=== PATIENT | female | born 1935 | race Caucasian/White ===

== ENCOUNTER 2024-03-28 16:46 | Observation (INO) | payer MEDICARE, SELFPAY ==
[2024-03-28] VITALS (19 sets, daily range): BP systolic 113–139; BP diastolic 51–73; PULSE 70–94; RESP 14–26; TEMP 36.4; O2SAT 90–96
--- NOTE | ~2024-03-28 | XR_ITS ---
XR chest 1V portable DATE: 03/28/2024 18:21 INDICATION: Syncope TECHNIQUE: Portable upright AP chest on 03/28/2024 at 1814 hours COMPARISON: None FINDINGS: Heart size appears within normal limits considering magnification associated with AP projec tion. There is aortic arch and descending thoracic aortic calcification. No hilar or mediastinal enlargement. There is moderate elevation right hemidiaphragm. No pulmonary infiltrate or consolidation, pleural effusion or pulmonary vascular congestion or pneumo thorax is detected. There is prominent thoracolumbar dextroscoliosis. Severe bilateral glenohumeral osteophytosis of bilateral chronic rotator cuff atrophy. IMPRESSION: No active cardiopulmonary disease Moderate elevation right diaphragm Aortic atherosclerosis No active pulmonary disease Reviewed, dictated and finalized at location A. ICAL THERAPIST CLINIC DIRECTOR
--- NOTE | ~2024-03-28 | CT_ITS ---
EXAMINATION: CT cervical spine wo con DATE: 03/28/2024 19:54 INDICATION: Fall. TECHNIQUE: Computed tomography (CT) of the cervical spine was performed without intravenous contrast. Automated exposure control and iterative reconstruction technique were employed. Exam dose: 681.00 mGy-cm total exam DLP. COMPARISON: None FINDINGS: There is straightening of cervical spine which may be due to muscle spasm. Normal alignment at the atlantoaxial joints. C1 and C2 are normally aligned and the odontoid process is intact. There is minimal anterolisthesis at C2-3. There is an osteosclerotic lesion of the left posterosuperior aspect of the C3 vertebral body, possib ly a bone island. 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 There is slight anterolisthesis and severe degenerative disc disease at C4-5. There is severe degenerative disc disease at C5-6 and C6-7. There is slight anterolisthesis at C7-T1. There is prominent degenerative change at the facet joints throughout the cervical spine. There is pr ominent degenerative change at the uncovertebral joints 4 5, C5-6 and C6-7, particularly on the left side. No fracture or dislocation or locked facet or prevertebral soft tissue swelling is detected. IMPRESSION: Severe cervical spondylosis straightening of the cervical spine which may be due to musc le spasm. No fracture or dislocation or locked facet Reviewed, dictated and finalized at [facility]. Reviewed, dictated and finalized at location A. MENDER IMPRESSION: Severe cervical spondylosis straightening of the cervical spine wh ich may be due to muscle spasm. No fracture or dislocation or locked facet
--- NOTE | ~2024-03-28 | CT_ITS ---
EXAMINATION: CT brain wo con DATE: 03/28/2024 19:53 INDICATION: Seizure versus syncope TECHNIQUE: Computed tomography (CT) of the head was performed without intravenous contrast. The mA wa s adjusted according to patient size. Iterative reconstruction technique was employed. Exam dose: 68 1.00 mGy-cm total exam DLP. COMPARISON: None FINDINGS: There are prominent bilateral vertebral artery calcifications as well as prominent bilatera l carotid siphon internal carotid artery calcifications. There is nonspecific diminished attenuation the cerebral white matter, likely due to chronic ischemic small vessel ischemic changes. No intracranial mass lesion or hemorrhage or cerebrovascular accident, midline shift or mass effect i s detected. No subdural or epidural hematoma. Status post bilateral cataract repair The mastoid air cells and paranasal sinuses are well-developed and aerated. No fracture or bone destruction of the cranial vault is detected. IMPRESSION: Cerebral atherosclerosis and chronic small vessel ischemic changes of the cerebral white matter No acute intracranial finding Reviewed, dictated and finalized at [facility]. Reviewed, dictated and finalized at location A. D ARTILLERY OPERATIONS SPECIALIST
--- NOTE | 2024-03-28 16:50 | ECG_ITS ---
Test Date: 2024-03-28 16:55:59 Measurements Intervals [place] Rate: 78 P: 50 MS: 179 QRS: -32 QRSD: 83 T: 15 QT: 365 QTc: 417 Interpretive Statements SINUS RHYTHM LEFT AXIS DEVIATION [QRS AXIS < -30] PATTERN CONSISTENT WITH PULMONARY DISEASE VOLTAGE CRITERIA FOR LVH [MEETS CRITERIA IN ONE OF: R(aVL), S(V1), R(V5), R(V5/V6)+S(V1)] No previous ECG available for comparison Electronically Signed On 03-29-2024 12:43:50 LEARNING SUPPORT SERVICES DIRECTOR by Aakash Taveras M.D.
[2024-03-28 18:01] LABS: Basophils Percent Auto 0.5 % (0.2-1.2); Eosinophils Percent Auto 0.5 % (0-4.4); Hematocrit 39.6 % (37.0-47.0); Immature Granulocyte Absolute 0.05 K/mm3 (0.00-0.031); Immature Granulocyte Percent A 0.6 % (0-0.5); Lymphocytes Absolute Auto 1.13 K/mm3 (0.9-3.2); Lymphocytes Percent Auto 14.2 % (18.3-44.2); Mean Corpuscular HGB Conc 32.8 g/dl (32-36); Mean Corpuscular Hemoglobin 30.7 pg (26-34); Mean Corpuscular Volume 93.4 fl (80-100); Mean Platelet Volume 9.4 fl (7.4-10.4); Monocytes Absolute Auto 0.7 K/mm3 (0.1-0.6); Monocytes Percent Auto 8.3 % (2.6-8.5); Neutrophils Percent Auto 75.9 % (45.5-73.1); Platelet Count Result 254 k/mm3 (150-375); Red Blood Count 4.24 M/mm3 (4.2-5.4); Red Cell Distribution Width 12.4 % (11.5-14.5)
[2024-03-28 18:14] LABS: Alanine Aminotransferase 17 U/L (6-35); Albumin Level 4.2 g/dL (3.5-5.1); Alkaline Phosphatase 67 U/L (38-126); Anion Gap 7 mmol/L (4-12); Aspartate Amino Transferase 26 U/L (14-36); Bilirubin,Total 0.3 mg/dL (0.2-1.3); Blood Urea Nitrogen 21 mg/dL (7-17); Calcium 9.2 mg/dL (8.4-10.2); Carbon Dioxide 31 mmol/L (22-30); Chloride 99 mmol/L (98-107); Estimated Glomerular Filt Rate 59; Glucose 128 mg/dL (65-110); Potassium 4.1 mmol/L (3.4-5.0); Sodium 137 mmol/L (137-145)
--- NOTE | 2024-03-28 19:53 | PC.NURSE ---
Report received from TALIA Grullon. Assumed care of patient at this time.
[2024-03-28] MEDS: levETIRAcetam 1500MG/NACL100ML 1,500 MG/100 ML BAG 400 MG IVPB (19:57)
[2024-03-28 20:13] LABS: Prothrombin Time 13.7 Seconds (11.1-14.7)
[2024-03-28] MEDS: SODIUM CHLORIDE 0.9% IV 1,000 ML 999 ML IV CONT (20:13)
[2024-03-28 20:14] LABS: Partial Thromboplastin Time 28.7 Seconds (22.3-36.8)
[2024-03-28 21:20] LABS: Lactic Acid Reflex 1.1 mmol/L (0.7-2.0); Lipase 64 U/L (23-300); Magnesium 2.1 mg/dL (1.6-2.3); Phosphorus 4.2 mg/dL (2.5-4.5)
[2024-03-28 21:21] LABS: Ethanol < 10 mg/dL (<10)
[2024-03-28 21:33] LABS: NT Pro B Type Natriuretic Pept 136 pg/mL (19.9-100); Troponin I < 0.012 ng/mL (0.000-0.034)
[2024-03-28 21:35] LABS: Fractional Inspired Oxygen 21 %; HCO3 VBG 25.6 mEq/l (24.0-30.0); PCO2 VBG 43.7 mmHg (42.0-48.0); pH VBG 7.386 (7.300-7.400)
[2024-03-28 21:48] LABS: Influenza A QL RT-PCR Negative (Negative); Influenza B QL RT-PCR Negative (Negative); RSV RNA, RT-PCR Negative (Negative); SARS-CoV-2 RNA PCR Negative (Negative)
[2024-03-28 22:35] LABS: Add Urine Microscopic? YES; Appearance Urine Clear (Clear); Bacteria Urine None Seen /hpf; Bilirubin Urine Negative (Negative); Blood Urine Negative (Negative); Color Urine Yellow (Yellow); Glucose Urine UA Negative (Negative); Ketones Urine Negative (Negative); Leukocyte Esterase Ur 2+ LEU/UL (Negative); Nitrate Urine Negative (Negative); Non Pathogenic Casts 0-2; Protein Urine Negative (Negative); RBC Urine 0-2 /hpf (0-2); Specific Grav Ur 1.011 (1.001-1.035); Squamous Epithelial Cell Urine None Seen /hpf (Few); Urobilinogen Urine 0.2 mg/dL (<2.0)
[2024-03-28 22:51] LABS: Amphetamine Screen Urine Negative (Negative); Barbiturate Screen Urine Negative (Negative); Benzodiazepines Screen Urine Negative (Negative); Cannabinoid Screen Urine Negative (Negative); Cocaine Screen Urine Negative (Negative); Methadone Screen Urine Negative (Negative); Opiate Screen Urine Negative (Negative); Phencyclidine Screen Urine Negative (Negative)
--- NOTE | 2024-03-28 23:21 | ED.GENADULT ---
HPI - General Adult General Chief complaint: Seizure Stated complaint: syncope vs seizure Time Seen by Provider: 03/28/24 18:54 History of Present Illness HPI narrative: This is an 88-year-old female presenting to the ED after loss of consciousness. Over the last week patient has felt slightly under the weather. She has had intermittent fevers. She has had decreased oral intake and felt lightheaded and dizzy when she stands up. She has had sinus congestion and pressure. She denies chest pain difficulty or abdominal pain or urinary symptoms. She was seen at an outside hospital yesterday with a negative workup was discharged with diagnosis of viral illness. She had been doing better today, however a family birthday libertarian while she was sitting down eating she lost consciousness. Her eyes rolled head and she became very pale. Her granddaughter kept her from falling or hitting her head. Family noticed slight tremors during this time. Episode lasted approximately 5 minutes before she returned to consciousness. An ambulance was called and she had 1 episode of nausea and vomiting in the ambulance. At this time she is resting comfortably in bed with no complaints. Patient has no history of seizures. No tongue biting or urinary incontinence. Related Data Allergies Allergy/AdvReac Type Severity Reaction Status Date / Time Penicillins Allergy Unknown Verified 03/28/24 19:56 Exam Narrative: APPEARANCE: No apparent distress. Head: atraumatic. EYES: EOMI, NOSE: Atraumatic NECK: Trachea midline RESPIRATORY: No increased rate of breathing clear to auscultation CARDIOVASCULAR: RRR, no peripheral edema ABDOMINAL: Non-distended soft nontender MUSCULOSKELETAl: No obvious deformities NEURO: Alert. Cranial nerves 2-12 grossly intact. Sensation light touch, motor function cerebellar function intact for 4 extremities. Gait exam was normal. SKIN:: Warm, dry. Normal color PSYCHIATRIC: Normal affect Course Vital Signs Vital signs: Vital Signs Temperature 97.6 F 03/28/24 16:46 Pulse Rate 79 03/28/24 16:46 Respiratory Rate 16 03/28/24 16:46 Blood Pressure 135/70 03/28/24 16:46 Pulse Oximetry 96 03/28/24 16:46 Oxygen Delivery Room Air 03/28/24 16:46 Temperature 97.6 F 03/28/24 16:46 Pulse Rate 81 03/28/24 22:31 Respiratory Rate 14 03/28/24 22:31 Blood Pressure 139/57 L 03/28/24 22:31 Pulse Oximetry 92 03/28/24 19:01 Oxygen Delivery Room Air 03/28/24 16:58 Medical Decision Making MDM Narrative Medical decision making narrative: -Course: 88-year-old female presenting with brief loss of consciousness in the setting of suspected viral illness. Based on her history and physical I suspect this was a syncopal event as opposed to seizure. However given her advanced age and her multiple visits to the emergency room a broad workup will be obtained. Patient given a dose of Keppra and 1 L of normal saline. CT head and C-spine unremarkable. Chest x-ray negative. Laboratory studies unremarkable. Viral swabs negative Urine with 6-10 white blood cells. Patient started on ceftriaxone. Independent EKG interpretation: Rhythm [sinus], Rate [78], [place] -[normal], [place] -[normal], QRS [narrow], QTC [normal], T waves -[negative for concerning inversions], ST Segments - [Negative for concerning elevations] Final interpretations: [Normal Sinus Rhythm] Patient will be admitted hospital for further workup of her loss of consciousness. Consult placed to Neurology -DDX includes but is not limited to: Viral syndrome, dehydration, syncope, seizure -Social determinants of health: Patient is very active exercises multiple times per week. Fully functional at her own. Denies use of drugs or alcohol -Hx from independent Sources: Son and granddaughter at bedside -Discussion of Management/Consultants:Josiah, -Interventions: Keppra 1500 mg, normal saline, ceftriaxone -Shared decision making / Disposition: Observation Vital Signs Vital Signs: Vital Signs Temperature 97.6 F 03/28/24 16:46 Pulse Rate 79 03/28/24 16:46 Respiratory Rate 16 03/28/24 16:46 Blood Pressure 135/70 03/28/24 16:46 Pulse Oximetry 96 03/28/24 16:46 Oxygen Delivery Room Air 03/28/24 16:46 Temperature 97.6 F 03/28/24 16:46 Pulse Rate 81 03/28/24 22:31 Respiratory Rate 14 03/28/24 22:31 Blood Pressure 139/57 L 03/28/24 22:31 Pulse Oximetry 92 03/28/24 19:01 Oxygen Delivery Room Air 03/28/24 16:58 Lab Data 03/28/24 17:53 03/28/24 17:53 Labs: Lab Results 03/28/24 03/28/24 03/28/24 Range/Units 17:53 21:03 22:27 WBC 8.0 (4.5-10.0) K/mm3 RBC 4.24 (4.2-5.4) M/mm3 Hgb 13.0 (12.0-15.0) g/dL Hct 39.6 (37.0-47.0) % MCV 93.4 (80-100) fl MCH 30.7 (26-34) pg MCHC 32.8 (32-36) g/dl RDW 12.4 (11.5-14.5) % Plt Count 254 (150-375) k/mm3 MPV 9.4 (7.4-10.4) fl Immature Gran % (Auto) 0.6 H (0-0.5) % Neut % (Auto) 75.9 H (45.5-73.1) % Lymph % (Auto) 14.2 L (18.3-44.2) % [place] % (Auto) 8.3 (2.6-8.5) % Eos % (Auto) 0.5 (0-4.4) % Baso % (Auto) 0.5 (0.2-1.2) % Lymph # (Auto) 1.13 (0.9-3.2) K/mm3 [place] # (Auto) 0.7 H (0.1-0.6) K/mm3 Eos # (Auto) 0.0 (0-0.3) K/mm3 Baso # (Auto) 0.0 (0.0-0.1) K/mm3 Abs Immat Gran (auto) 0.05 H (0.00-0.031) K/mm3 Absolute Neuts (auto) 6.0 (1.3-6.7) K/mm3 Absolute Nucleated RBC 0.000 (0.0-0.012) K/mm3 Nucleated RBC % 0.0 (0.0-0.2) % PT 13.7 (11.1-14.7) Seconds INR 1.0 APTT 28.7 (22.3-36.8) Seconds Sodium 137 (137-145) mmol/L Potassium 4.1 (3.4-5.0) mmol/L Chloride 99 (98-107) mmol/L Carbon Dioxide 31 H (22-30) mmol/L Anion Gap 7 (4-12) mmol/L BUN 21 H (7-17) mg/dL Creatinine 0.90 (0.7-1.0) mg/dL Estim Creat Clear Calc Not Reportable Estimated GFR 59 (59 - ) Glucose 128 H (65-110) mg/dL Lactic Acid 1.1 (0.7-2.0) mmol/L Calcium 9.2 (8.4-10.2) mg/dL Phosphorus 4.2 (2.5-4.5) mg/dL Magnesium 2.1 (1.6-2.3) mg/dL Total Bilirubin 0.3 (0.2-1.3) mg/dL AST 26 (14-36) U/L ALT 17 (6-35) U/L Alkaline Phosphatase 67 (38-126) U/L Troponin I < 0.012 (0.000-0.034) ng/mL NT-Pro-B Natriuret Pep 136 H (19.9-100) pg/mL Total Protein 8.0 (6.3-8.2) g/dL Albumin 4.2 (3.5-5.1) g/dL Lipase 64 (23-300) U/L TSH (Reflex) 2.200 (0.465-4.68) uIU/mL Urine Color Yellow (Yellow) Urine Appearance Clear (Clear) Urine pH 7.0 (5.0-9.0) Ur Specific [place] 1.011 (1.001-1.035) Urine Protein Negative (Negative) mg/dL Urine Glucose (UA) Negative (Negative) mg/dL Urine Ketones Negative (Negative) mg/dL Ur Blood (Man) Negative (Negative) Urine Nitrate Negative (Negative) Urine Bilirubin Negative (Negative) Urine Urobilinogen 0.2 (<2.0) mg/dL Leukocyte Esterase Rfl 2+ H (Negative) VINCE/UL Urine RBC 0-2 (0-2) /hpf Urine WBC 6-10 H (0-3) /hpf Ur Squamous Epith Cells None seen (Few) /hpf Urine Bacteria None seen /hpf Urine Casts 0-2 Urine Opiates Screen Negative (Negative) Urine Methadone Screen Negative (Negative) Ur Barbiturates Screen Negative (Negative) Ur Phencyclidine Scrn Negative (Negative) Ur Amphetamine Screen Negative (Negative) U Benzodiazepines Scrn Negative (Negative) Urine Cocaine Screen Negative (Negative) U Cannabinoids Screen Negative (Negative) Ethyl Alcohol < 10 (<10) mg/dL Influenza A (RT-PCR) Negative (Negative) Influenza B (RT-PCR) Negative (Negative) RSV (RT-PCR) Negative (Negative) SARS-CoV-2 RNA (RT-PCR) Negative (Negative) ABG Data ABG results: 03/28/24 21:03 VBG pH 7.386 VBG pCO2 43.7 VBG pO2 60.0 H VBG HCO3 25.6 O2 Delivery Device Not Reportable O2 Liters/Min Not Reportable FiO2 21 Discharge Plan Discharge Clinical Impression: Brief loss of consciousness, Acute dehydration, Acute UTI Patient Disposition: Home, Self-Care Condition: Guarded Prognosis Instructions: Antibiotic Form Follow-up/Referrals: Micah,Les Borjas MD [Primary Care Provider] -
[2024-03-29] VITALS (29 sets, daily range): BP systolic 116–179; BP diastolic 48–68; PULSE 57–89; RESP 13–18; TEMP 36.1–36.6; O2SAT 92–99; BMI 18.3
--- NOTE | 2024-03-29 00:12 | ECG_ITS ---
Test Date: 2024-03-29 00:55:04 Measurements Intervals [place] Rate: 74 P: 67 [place]: 185 QRS: -24 QRSD: 86 T: 19 QT: 374 QTc: 417 Interpretive Statements SINUS RHYTHM BORDERLINE LEFT AXIS DEVIATION [QRS AXIS < -20] Compared to ECG 03/28/2024 16:55:59 Left ventricular hypertrophy no longer present Electronically Signed On 03-29-2024 12:51:47 CLIENT DELIVERY SPECIALIST by Aakash Taveras M.D.
[2024-03-29 01:35] LABS: Troponin I < 0.012 ng/mL (0.000-0.034)
--- NOTE | 2024-03-29 07:39 | P.HP_ITS ---
H&P: HPI History of Present Illness Date/Time: 03/29/24 07:39 Chief Complaint: Loss of consciousness Narrative: 88 y/o female, recently treated for dizziness, admitted after a loss of consciousness. The patient is generally very active, still goes to the gym several times a week. She had a fall 2 months ago. Sounds like she tripped, but may have had dizziness before the episode. Fell down several steps and had bruising to her face and a laceration. Last month no significant complaints and was going to the gym. Notes sinus congestion and heartburn sometimes. Last week, March 23 & she had a low grade fever, also notes some intermittent dysuria recently. Fevers resolved but she had positional dizziness on Friday and went to the ER in [facility]. Symptoms thought to be vertigo so she was started on meclizine. She continues to have positional dizziness intermittently. Yesterday she was at her grandson's birthday constitution party and was standing and talking, suddenly lost consciousness mid sentence and had to be caught. Was not injured because a family member caught her. Her son reports no shaking during the episode and sounds like her pulse was palpable and blood pressure was normal. There was a note in the ER that she may have had slight tremors but son at bedside did not notice any. Son who was present said the episode lasted about 5 minutes. She was completely unresponsive and when she woke up 5 minutes later, she made a comment related to the conversation she was having when she lost consciousness. Her son reports her speech was not quite normal initially but 15 minutes later he felt her mental status was back to baseline. She had nausea in the ambulance. Home meds: Meclizine, Omeprazole PRN, otherwise none Review of Systems Review of Systems: Nausea/vomiting, dizziness, recent fevers PMFSH Family History Family History (Updated 03/29/24 @ 02:04 by Kirti Arriaza RN) Father Cerebrovascular accident Social History Social History Smoking status: Former smoker Substance use type: does not use Do You Feel Safe in your Home?: Yes Lack of Transportation: No Lack of Food: Never True Current Housing: I Have Housing Concerned About Future Housing: No Difficulty Paying Gas/Electric Bills: No Difficulty Paying for Meds: No Currently Unemployed: No Education: Bachelor's Degree Difficulty w/ Childcare or Family Care: No Spiritual care concerns: No Meds Home Medications and Allergies Home Medications Medication Instructions Recorded Confirmed Type aspirin 81 mg tablet 81 mg PO DAILY 03/29/24 03/29/24 History omeprazole magnesium 20 mg 20 mg PO DAILY 03/29/24 03/29/24 History tablet,delayed release (Prilosec OTC) Allergies Allergy/AdvReac Type Severity Reaction Status Date / Time Penicillins Allergy Unknown Verified 03/28/24 19:56 Vital Signs Vital Signs - 24 hr 03/28/24 16:46 03/28/24 16:58 03/28/24 19:00 Temperature 97.6 F Pulse Rate 79 80 Respiratory Rate 16 14 Blood Pressure 135/70 Pulse Oximetry 96 90 Oxygen Delivery Room Air Room Air 03/28/24 19:01 03/28/24 20:06 03/28/24 20:40 Temperature Pulse Rate 85 94 89 Respiratory Rate 19 17 17 Blood Pressure 133/73 Pulse Oximetry 92 Oxygen Delivery 03/28/24 20:45 03/28/24 21:05 03/28/24 21:15 Temperature Pulse Rate 85 91 81 Respiratory Rate 14 20 16 Blood Pressure Pulse Oximetry Oxygen Delivery 03/28/24 21:31 03/28/24 22:25 03/28/24 22:30 Temperature Pulse Rate 80 Respiratory Rate 26 H 19 Blood Pressure 139/53 L Pulse Oximetry Oxygen Delivery 03/28/24 22:31 03/28/24 22:32 03/28/24 23:01 Temperature Pulse Rate 81 82 75 Respiratory Rate 14 16 20 Blood Pressure 139/57 L 113/51 L Pulse Oximetry Oxygen Delivery 03/28/24 23:02 03/28/24 23:24 03/28/24 23:30 Temperature Pulse Rate 73 71 86 Respiratory Rate 16 14 21 H Blood Pressure Pulse Oximetry Oxygen Delivery 03/28/24 23:31 03/28/24 23:45 03/29/24 00:00 Temperature Pulse Rate 70 71 71 Respiratory Rate 22 H 16 15 Blood Pressure 132/56 L Pulse Oximetry 98 Oxygen Delivery 03/29/24 00:01 03/29/24 00:02 03/29/24 00:29 Temperature Pulse Rate 74 68 71 Respiratory Rate 16 15 14 Blood Pressure 139/53 L Pulse Oximetry 95 97 97 Oxygen Delivery 03/29/24 00:30 03/29/24 00:31 03/29/24 00:45 Temperature Pulse Rate 70 77 66 Respiratory Rate 16 15 14 Blood Pressure 126/58 L Pulse Oximetry 93 94 92 Oxygen Delivery 03/29/24 01:15 03/29/24 01:30 03/29/24 01:31 Temperature Pulse Rate 72 67 76 Respiratory Rate 14 15 17 Blood Pressure 130/67 Pulse Oximetry 96 Oxygen Delivery 03/29/24 01:32 03/29/24 03:20 03/29/24 03:30 Temperature Pulse Rate 67 61 61 Respiratory Rate 15 15 14 Blood Pressure Pulse Oximetry Oxygen Delivery 03/29/24 03:31 03/29/24 04:03 03/29/24 04:15 Temperature Pulse Rate 62 60 63 Respiratory Rate 14 13 16 Blood Pressure 116/50 L Pulse Oximetry Oxygen Delivery 03/29/24 04:30 03/29/24 04:31 03/29/24 04:45 Temperature Pulse Rate 57 L 58 L 59 L Respiratory Rate 15 13 15 Blood Pressure 143/48 H Pulse Oximetry Oxygen Delivery 03/29/24 05:07 03/29/24 07:11 03/29/24 07:11 Temperature 97.6 F Pulse Rate 60 71 71 Respiratory Rate 15 18 Blood Pressure 172/59 H Pulse Oximetry 97 96 Oxygen Delivery Exam Narrative: General - Awake and alert. No acute distress Eyes - PERRLA, EOM intact ENT - No thrush, No erythema Neck - No noticeable or palpable swelling Lymph Nodes - No lymphadenopathy Cardiovascular - RRR no m/r/g, no JVD Lungs: Clear to auscultation, No wheezing, use of accessory muscles, no crackles Skin - Skin warm and dry, no wounds or rashes Abdomen - Normal bowel sounds, abdomen soft and nontender Extremities - No edema, cyanosis or clubbing Musculoskeletal - 5/5 strength, normal range of motion, no swollen or erythematous joints. Neurological ? Alert and oriented x 3, CN 2-12 grossly intact. Gait slightly unsteady. Nonfocal exam. Psych: Normal mood and affect H&P: Results Labs Labs: Short CBC 03/28/24 Range/Units 17:53 WBC 8.0 (4.5-10.0) K/mm3 Hgb 13.0 (12.0-15.0) g/dL Hct 39.6 (37.0-47.0) % Plt Count 254 (150-375) k/mm3 [facility] 03/28/24 17:53 Sodium 137 Potassium 4.1 Chloride 99 Carbon Dioxide 31 H BUN 21 H Creatinine 0.90 Glucose 128 H Calcium 9.2 Cardiac Enzymes 03/28/24 03/29/24 Range/Units 21:03 01:02 Troponin I < 0.012 < 0.012 (0.000-0.034) ng/mL Liver Function 03/28/24 Range/Units 17:53 Total Bilirubin 0.3 (0.2-1.3) mg/dL AST 26 (14-36) U/L ALT 17 (6-35) U/L Alkaline Phosphatase 67 (38-126) U/L Albumin 4.2 (3.5-5.1) g/dL Urine 03/28/24 Range/Units 22:27 Urine Color Yellow (Yellow) Urine Appearance Clear (Clear) Urine pH 7.0 (5.0-9.0) Ur Specific [place] 1.011 (1.001-1.035) Urine Protein Negative (Negative) mg/dL Urine Glucose (UA) Negative (Negative) mg/dL Assessment and Plan Assessment and plan (1) Loss of consciousness: Code(s): R40.20 - Unspecified coma Status: Acute Assessment and Plan: Fell 2 months ago. Continues to report dizziness intermittently. 03/28 she was at her grandson's birthday constitution party and was standing and talking, suddenly lost consciousness mid sentence and had to be caught. She was caught so no injuries. No obvious seizure like activity per patient's son. Episode lasted about 5 minutes. Per son, she was completely unresponsive and when she woke up 5 minutes later, she made a comment related to the conversation she was having when she lost consciousness. Her son reports her speech was not quite normal initially but 15 minutes later he felt her mental status was back to baseline. She did have an episode of nausea/vomiting in the ambulance. In the ED, Head CT and cervical spine CT no acute findings Ddx includes seizure, arrhythmia, infection triggering arrhythmia 03/[address]: Cerebral atherosclerosis and chronic small vessel ischemic changes of the cerebral white matter No acute intracranial findings EKG NSR, normal QTc, 417 03/[address] Severe cervical spondylosis straightening of the cervical spine which may be due to muscle spasm. No fracture or dislocation or locked facet --Family member is Chasidy, who is an RN here and was present for the event may have additional information if needed. --Neurology consult --TTE --Monitor on tele --EEG --Stop meclizine for now --Orthostatic VS --Fall precautions, seizure precautions --Patient is a full code. Clarified with patient and son --PT/OT (2) GERD (gastroesophageal reflux disease): Code(s): K21.9 - Gastro-esophageal reflux disease without esophagitis Status: Acute Assessment and Plan: Takes omeprazole at home sometimes. Hasn't taken in a couple of days and has had reflux symptoms --Continue PPI --Stool for h pylori, though can be false negative on a PPI (3) Dysuria: Code(s): R30.0 - Dysuria Status: Acute Assessment and Plan: Recent low grade temps. No back pain Reports dysuria recently --s/p 1 dose of ceftriaxone in the ED --TTE --Blood cultures pending Quality VTE Prophylaxis VTE prophylaxis: pharmacologic ordered Hospitalist MIPS Advance Care Plan I have confirmed that the patient's Advanced Care Plan is present, code status is documented, or surrogate decision maker is listed in patient medical record.: Yes Medication Reconciliation I have utilized all available resources to obtain, update and review the patients current medications (includes all prescriptions, OTC, herbals, c annabis, and nutritional supplements).: Yes
--- NOTE | 2024-03-29 07:54 | PC.NURSE ---
Meal tray ordered for pt
--- NOTE | 2024-03-29 07:59 | PC.NURSE ---
COVID, FLU, RSV cancelled as it is a duplicate order
--- NOTE | 2024-03-29 13:16 | PC.NURSE ---
Meal tray ordered for pt
--- NOTE | 2024-03-29 15:14 | ADMGEN ---
This patient, Taty Rodriguez, was admitted to Medical Room 252-01. Patient/family oriented to hospital policies and general routines including ID bracelet, bed and alarms, visiting hours, pain management, procedures, bathroom and other care routines, personal items, smoking policy, room service/diet, and visiting hours. Information on how to activate the Rapid Response Team has been discussed. Patient/Family are encouraged to report perceived risks to care and to ask questions if they do not understand what they are told or what they should do.
[2024-03-30] VITALS (13 sets, daily range): BP systolic 119–186; BP diastolic 52–82; PULSE 63–101; RESP 16–18; TEMP 36.6–36.9; O2SAT 96–99
--- NOTE | 2024-03-30 | ECHO_ITS ---
Patient Info Name: Taty Rodriguez Age: 88 years : 1935 Gender: Female Ht: 58 in Wt: 87 lbs BSA: 1.27 m2 HR: 97 bpm BP: 151 / 68 mmHg Heart Rhythm: Sinus Rhythm Technical Quality: Fair Exam Date: 03/30/2024 11:39 AM Exam Location: Echo Lab Patient Status: Inpatient Admit Date: 03/29/2024 Staff Ordering Physician: Collette Zhang APRN Picker And Sorter Load And Unload: Chin Peterson RDCS Attending Provider: Bossman Pena MD Exam Type: CA echo doppler color flow Study Info Indications S06.1x1A - Traumatic cerebral edema with loss of consciousness of 30 minutes or less, initial encounter Complete two-dimensional, color flow and Doppler transthoracic echocardiogram is performed. Summary 1. Left ventricular chamber dimension is normal. 2. Left ventricular systolic function is normal, estimated at 60-65%. 3. There is moderately increased left ventricular wall thickness. 4. The left ventricular diastolic function is grade I diastolic dysfunction. 5. Right ventricular systolic function is normal. 6. There is mild mitral valve regurgitation. 7. There is mild tricuspid valve regurgitation. Left Ventricle Left ventricular chamber dimension is normal. Left ventricular systolic function is normal, estimated at 60-65%. There is moderately increased left ventricular wall thickness. The left ventricular diastolic function is grade I diastolic dysfunction. Right Ventricle Right ventricular chamber dimension is normal. Right ventricular systolic function is normal. Left Atria Left atrial chamber dimension is normal. Right Atria Right atrial chamber dimension is normal. Atrial Septum Intact interatrial septum visualized by color flow imaging. Aortic Valve The aortic valve is trileaflet. There is mild aortic valve sclerosis. There is no aortic valve stenosis. There is trace aortic valve regurgitation. Pulmonic Valve The pulmonic valve is not well visualized. There is trace pulmonic regurgitation. Mitral Valve There is mild mitral valve regurgitation. The mitral valve annulus is mildly calcified. Tricuspid Valve There is mild tricuspid valve regurgitation. Pericardium/Pleural There is no pericardial effusion. Inferior Vena Cava Normal inferior vena cava with >50% collapse upon inspiration consistent with normal right atrial pressure, 3 mmHg. Aorta The aortic root size at the sinus of Valsalva is normal. Left Ventricular Outflow Tract Name Value Normal LVOT 2D LVOT Diameter 2.0 cm LVOT Doppler LVOT Peak Gradient 3 mmHg LVOT Mean Gradient 1 mmHg LVOT VTI 15 cm LVOT VTI/AV VTI Ratio 0.6 LVOT Stroke Volume 45 ml LVOT CO 3.4 l/min LVOT CI 2.7 l/min/m2 Pulmonic Valve Name Value Normal PV Doppler PV Peak Gradient 7 mmHg PV Regurgitation Doppler NJ Peak End Diastolic Velocity 80 cm/s Mitral Valve Name Value Normal MV Doppler MV Decel Lea 276 cm/s2 MV PHT 63 ms MV Area (PHT) 3.5 cm2 4.0-5.0 MV Diastolic Function MV E Peak Velocity 60 cm/s MV A Peak Velocity 101 cm/s MV E/A 0.6 MV Decel Time 217 ms Tricuspid Valve Name Value Normal TV Regurgitation Doppler TR Peak Velocity 242 cm/s TR Peak Gradient 22 mmHg Estimated PAP/RSVP RA Pressure 3 mmHg <=5 PA Systolic Pressure 26 mmHg <36 RV Systolic Pressure 26 mmHg <36 Aorta Name Value Normal Ascending Aorta Ao Root Diameter (MM) 1.5 cm Ao Root Diam Index (MM) 1.2 cm/m2 Aortic Valve Name Value Normal AV Doppler AV Peak Velocity 159 cm/s AV Peak Gradient 10 mmHg AV Mean Gradient 5 mmHg AV VTI 25 cm AV Area (Cont Eq VTI) 1.8 cm2 >=3.0 AV Area (Cont Eq Severiano) 1.7 cm2 AV Regurgitation 2D LVOT Area 3.1 cm2 Ventricles Name Value Normal LV Dimensions 2D/MM IVS Diastolic Thickness (2D) 0.8 cm 0.6-1.0 IVS Diastole Thickness (MM) 0.9 cm 0.6-0.9 LVID Diastole (2D) 4.1 cm 3.8-5.2 LVID Diastole (MM) 4.0 cm 3.8-5.2 LVIW Diastolic Thickness (2D) 1.0 cm 0.6-0.9 LVIW Diastolic Thickness (MM) 0.9 cm 0.6-0.9 LVID Systole (2D) 2.3 cm 2.2-3.5 LVID Systole (MM) 2.6 cm 2.2-3.5 LVOT Diameter 2.0 cm LV Mass (2D Cubed) 120.12 g 67.00-162.00 LV Mass Index (2D Cubed) 95 g/m2 43-95 Relative Wall Thickness (2D) 0.51 LV Mass (MM Cubed) 106.08 g 67.00-162.00 LV Mass Index (MM Cubed) 84 g/m2 43-95 Relative Wall Thickness (MM) 0.43 LV Fractional Shortening/Ejection Fraction 2D/MM LV Fractional Shortening (2D) 44 % 27-45 LV Fractional Shortening (MM) 35 % 27-45 LV EF (MM Teicholz) 65 % 54-74 LV EF (2D Teicholz) 76 % 54-74 LV Diastolic Volume (4C MOD) 61 ml LV EF (4C MOD) 69 % LV Diastolic Volume (2C MOD) 53 ml LV EF (2C MOD) 64 % LV Diastolic Volume (BP MOD) 58 ml 46-106 LV Diastolic Volume Index (BP MOD) 46 ml/m2 29-61 LV Systolic Volume (BP MOD) 19 ml 14-42 LV Systolic Volume Index (BP MOD) 15 ml/m2 8-24 LV EF (BP MOD) 66 % 54-74 LV Diastolic Length (4C) 7.0 cm LV Systolic Length (4C) 6.2 cm LV Stroke Volume (4C MOD) 42 ml Atria Name Value Normal LA Dimensions LA Dimension (MM) 4.2 cm 2.7-3.8 LA Volume (4C A-L) 48 ml LA Volume (BP A-L) 32 ml RA Dimensions RA Area (4C) 11.2 cm2 <=18.0 Report Signatures
[2024-03-30] MEDS: ENOXAPARIN 30 MG/0.3 ML SYRINGE SUB-Q (09:16)
[2024-03-30] MEDS: PANTOPRAZOLE 40 MG TABLET PO (09:16)
[2024-03-30 09:26] LABS: Basophils Absolute Auto 0.1 K/mm3 (0.0-0.1); Basophils Percent Auto 0.7 % (0.2-1.2); Eosinophils Absolute Auto 0.1 K/mm3 (0-0.3); Eosinophils Percent Auto 1.1 % (0-4.4); Hematocrit 38.8 % (37.0-47.0); Hemoglobin 12.7 g/dL (12.0-15.0); Immature Granulocyte Absolute 0.03 K/mm3 (0.00-0.031); Immature Granulocyte Percent A 0.4 % (0-0.5); Lymphocytes Absolute Auto 1.31 K/mm3 (0.9-3.2); Lymphocytes Percent Auto 17.8 % (18.3-44.2); Mean Corpuscular HGB Conc 32.7 g/dl (32-36); Mean Corpuscular Hemoglobin 30.8 pg (26-34); Mean Corpuscular Volume 93.9 fl (80-100); Mean Platelet Volume 9.8 fl (7.4-10.4); Monocytes Absolute Auto 0.5 K/mm3 (0.1-0.6); Monocytes Percent Auto 7.2 % (2.6-8.5); Neutrophils Absolute Auto 5.3 K/mm3 (1.3-6.7); Neutrophils Percent Auto 72.8 % (45.5-73.1); Platelet Count Result 252 k/mm3 (150-375); Red Blood Count 4.13 M/mm3 (4.2-5.4); Red Cell Distribution Width 12.3 % (11.5-14.5); White Blood Count 7.3 K/mm3 (4.5-10.0)
[2024-03-30 10:27] LABS: Alanine Aminotransferase 18 U/L (6-35); Albumin Level 4.2 g/dL (3.5-5.1); Alkaline Phosphatase 75 U/L (38-126); Anion Gap 5 mmol/L (4-12); Aspartate Amino Transferase 30 U/L (14-36); Bilirubin,Total 0.6 mg/dL (0.2-1.3); Blood Urea Nitrogen 20 mg/dL (7-17); Calcium 9.4 mg/dL (8.4-10.2); Carbon Dioxide 30 mmol/L (22-30); Chloride 104 mmol/L (98-107); Estimated Glomerular Filt Rate > 60; Glucose 126 mg/dL (65-110); Sodium 139 mmol/L (137-145)
--- NOTE | 2024-03-30 11:11 | PCDIET ---
Nutrition screen for BMI: 18.4. Diet order: Heart Healthy. Oral Intake 75-100% of meals. Patient states to eating well, no concerns at this time. No further nutritional interventions.
--- NOTE | 2024-03-30 11:29 | P.CONCA_ITS ---
Assessment and Plan Assessment and plan (1) Syncope: Code(s): R55 - Syncope and collapse Status: Acute Assessment and Plan: Check orthostatic vital signs. Echocardiogram ordered and pending. Continue to monitor on tele while in the hospital. Recommend 30 day event monitor upon discharge (order already placed). 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 History of Present Illness History of Present Illness Consult date/time: 03/30/24 11:29 Requesting physician: Collette Zhang APRN Consult reason: Other (Syncope) Reason For Visit: Loss of consciousness Narrative: We are consulted for syncope. This is an 88 year old female with no prior cardiac history who presented after a syncopal episode. Was at a birthday democrat sitting at a table and talking, when all of a sudden, she lost consciousness. No prodromal symptoms. Had been feeling weak and dizzy the weak before, was told she may have vertigo. Lost consciousness for about 5 minutes. No past history of previous syncope. She is quite active, goes to the gym 4 times a week and otherwise healthy. She is currently feeling well. Workup shows negative troponins. CT head without acute findings. EKG with normal sinus rhythm, possible LVH. Telemetry thus far without any arrhythmias. Review of Systems 2 Review of Systems: All systems reviewed & are unremarkable except as noted in HPI and below (HPI) PENDING SALE TO [facility] Family History Family History Father Cerebrovascular accident Social History Social History Smoking status: Former smoker Substance use type: does not use Do You Feel Safe in your Home?: Yes Lack of Transportation: No Lack of Food: Never True Current Housing: I Have Housing Concerned About Future Housing: No Difficulty Paying Gas/Electric Bills: No Difficulty Paying for Meds: No Currently Unemployed: No Education: Bachelor's Degree Difficulty w/ Childcare or Family Care: No Spiritual care concerns: No Meds Home Medications and Allergies Home Medications ?Medication ?Instructions ?Recorded ?Confirmed ?Type aspirin 81 mg tablet 81 mg PO DAILY 03/29/24 03/29/24 History omeprazole magnesium 20 mg 20 mg PO HS 03/29/24 03/29/24 History tablet,delayed release (Prilosec OTC) olopatadine 0.2 % eye drops (Eye 1 drp EACH EYE DAILY 03/30/24 03/30/24 History Allergy Itch Relief) vit C 250 mg-vit E 90 mg-zinc 40 1 tablet PO BID 03/30/24 03/30/24 History mg-copper 1 [id number] capsule (PreserVision AREDS-2) Allergies Allergy/AdvReac Type Severity Reaction Status Date / Time Penicillins Allergy Unknown Verified 03/28/24 19:56 Vital Signs Vital Signs - 24 hr 03/29/24 13:36 03/29/24 15:12 03/29/24 16:00 Temperature 36.6 C Pulse Rate 83 80 81 Respiratory Rate 18 16 Blood Pressure 128/66 170/66 H Pulse Oximetry 98 96 Oxygen Delivery 03/29/24 18:37 03/29/24 21:22 03/29/24 21:46 Temperature 36.1 C L Pulse Rate 88 89 Respiratory Rate 16 Blood Pressure 151/68 H Pulse Oximetry 94 Oxygen Delivery Room Air 03/30/24 00:05 03/30/24 04:00 03/30/24 07:26 Temperature 36.9 C Pulse Rate 66 63 67 Respiratory Rate 16 Blood Pressure 154/52 H Pulse Oximetry 97 Oxygen Delivery 03/30/24 08:00 03/30/24 08:57 03/30/24 09:15 Temperature Pulse Rate 78 84 Respiratory Rate Blood Pressure 186/69 H Pulse Oximetry Oxygen Delivery Room Air 03/30/24 09:36 03/30/24 09:36 Temperature Pulse Rate 92 86 Respiratory Rate Blood Pressure 173/71 H 154/82 H Pulse Oximetry Oxygen Delivery Exam 2 Const: General: comfortable and no acute distress HENMT: Mouth: Yes moist mucous membranes Eyes: General: appearance normal, both eyes and all related structures S clera: sclerae normal Resp: Effort & Inspection: normal respiratory effort Cardio: Rate: regular rate Rhythm: regular rhythm Heart sounds: no murmurs Skin: General skin exam: normal color Neuro: Speech: normal speech Psych: Mental Status: mental status grossly normal Affect: normal affect Results Labs and Meds 03/30/24 09:07 03/30/24 09:07 Lab results: Cardiac Enzymes 03/30/24 Range/Units 09:07 AST 30 (14-36) U/L CBC 03/30/24 Range/Units 09:07 WBC 7.3 (4.5-10.0) K/mm3 RBC 4.13 L (4.2-5.4) M/mm3 Hgb 12.7 (12.0-15.0) g/dL Hct 38.8 (37.0-47.0) % Plt Count 252 (150-375) k/mm3 Lymph # (Auto) 1.31 (0.9-3.2) K/mm3 [place] # (Auto) 0.5 (0.1-0.6) K/mm3 Eos # (Auto) 0.1 (0-0.3) K/mm3 Baso # (Auto) 0.1 (0.0-0.1) K/mm3 Comprehensive Metabolic Panel 03/30/24 Range/Units 09:07 Sodium 139 (137-145) mmol/L Potassium 4.0 (3.4-5.0) mmol/L Chloride 104 (98-107) mmol/L Carbon Dioxide 30 (22-30) mmol/L BUN 20 H (7-17) mg/dL Creatinine 0.70 (0.7-1.0) mg/dL Glucose 126 H (65-110) mg/dL Calcium 9.4 (8.4-10.2) mg/dL AST 30 (14-36) U/L ALT 18 (6-35) U/L Alkaline Phosphatase 75 (38-126) U/L Total Protein 8.0 (6.3-8.2) g/dL Albumin 4.2 (3.5-5.1) g/dL Intake and Output 03/29/24 03/30/24 03/30/24 23:59 07:59 15:59 Intake Total 340 200 360 Balance 340 200 360 Intake: Oral 340 200 360 Other: # Unmeasured Voids 2 2 1
--- NOTE | 2024-03-30 13:16 | WPDNEURCNPN ---
Consult date: 03/30/24 HPI: Taty Rodriguez is a 88 year old female admitted to the hospital through the emergency room subsequent to becoming unconscious and with the information over the last week she has not been feeling well with intermittent fever, for oral intake and lightheadedness with URI symptoms she was recently seen at an outside hospital with negative workup and discharge diagnosis of viral illness on the day of visit to the ER by she was sitting down eating she became unconscious her eyes roll back into her head and she became extremely pale she was noted to have slight tremors the whole episode lasted for 5minutes then she became conscious in the ambulance EN route she had an episode of nausea and vomiting. She is reportedly allergic to penicillin, her initial exam was nonfocal, vital signs were normal, CBC was normal, BMP was normal, and so as the master scan her drug screen was negative and she was also negative for the gene viral infections, UA was 2+ leukocyte Estrace, negative CT scan for the bleed or major stroke, x-ray chest with moderate elevation right diaphragm and aortic atherosclerosis, and CT scan of cervical spine was severely arthritic. [facility] Family History Family History Father Cerebrovascular accident Social History Social History Smoking status: Former smoker Substance use type: does not use Do You Feel Safe in your Home?: Yes Lack of Transportation: No Lack of Food: Never True Current Housing: I Have Housing Concerned About Future Housing: No Difficulty Paying Gas/Electric Bills: No Difficulty Paying for Meds: No Currently Unemployed: No Education: Bachelor's Degree Difficulty w/ Childcare or Family Care: No Spiritual care concerns: No Meds Home Medications and Allergies Home Medications ?Medication ?Instructions ?Recorded ?Confirmed ?Type aspirin 81 mg tablet 81 mg PO DAILY 03/29/24 03/29/24 History omeprazole magnesium 20 mg 20 mg PO HS 03/29/24 03/29/24 History tablet,delayed release (Prilosec OTC) olopatadine 0.2 % eye drops (Eye 1 drp EACH EYE DAILY 03/30/24 03/30/24 History Allergy Itch Relief) vit C 250 mg-vit E 90 mg-zinc 40 1 tablet PO BID 03/30/24 03/30/24 History mg-copper 1 [id number] capsule (PreserVision AREDS-2) Allergies Allergy/AdvReac Type Severity Reaction Status Date / Time Penicillins Allergy Unknown Verified 03/28/24 19:56 Vital Signs Vital Signs - 24 hr 03/29/24 13:36 03/29/24 15:12 03/29/24 16:00 Temperature 36.6 C Pulse Rate 83 80 81 Respiratory Rate 18 16 Blood Pressure 128/66 170/66 H Pulse Oximetry 98 96 Oxygen Delivery 03/29/24 18:37 03/29/24 21:22 03/29/24 21:46 Temperature 36.1 C L Pulse Rate 88 89 Respiratory Rate 16 Blood Pressure 151/68 H Pulse Oximetry 94 Oxygen Delivery Room Air 03/30/24 00:05 03/30/24 04:00 03/30/24 07:26 Temperature 36.9 C Pulse Rate 66 63 67 Respiratory Rate 16 Blood Pressure 154/52 H Pulse Oximetry 97 Oxygen Delivery 03/30/24 08:00 03/30/24 08:57 03/30/24 09:15 Temperature Pulse Rate 78 84 Respiratory Rate Blood Pressure 186/69 H Pulse Oximetry Oxygen Delivery Room Air 03/30/24 09:36 03/30/24 09:36 03/30/24 12:00 Temperature Pulse Rate 92 86 76 Respiratory Rate Blood Pressure 173/71 H 154/82 H Pulse Oximetry Oxygen Delivery Results Labs 03/30/24 09:07 03/30/24 09:07 Labs: Short CBC 03/30/24 Range/Units 09:07 WBC 7.3 (4.5-10.0) K/mm3 Hgb 12.7 (12.0-15.0) g/dL Hct 38.8 (37.0-47.0) % Plt Count 252 (150-375) k/mm3 BMP 03/30/24 09:07 Sodium 139 Potassium 4.0 Chloride 104 Carbon Dioxide 30 BUN 20 H Creatinine 0.70 Glucose 126 H Calcium 9.4 Liver Function 03/30/24 Range/Units 09:07 Total Bilirubin 0.6 (0.2-1.3) mg/dL AST 30 (14-36) U/L ALT 18 (6-35) U/L Alkaline Phosphatase 75 (38-126) U/L Albumin 4.2 (3.5-5.1) g/dL
--- NOTE | 2024-03-30 13:37 | P.PNIM_ITS ---
Progress Note: A&P Assessment and Plan (1) Loss of consciousness: Code(s): R40.20 - Unspecified coma Status: Acute Assessment and Plan: Fell 2 months ago. Continues to report dizziness intermittently. 03/28 she was at her grandson's birthday alliance party and was standing and talking, suddenly lost consciousness mid sentence and had to be caught. She was caught so no injuries. No obvious seizure like activity per patient's son. Episode lasted about 5 minutes. Per son, she was completely unresponsive and when she woke up 5 minutes later, she made a comment related to the conversation she was having when she lost consciousness. Her son reports her speech was not quite normal initially but 15 minutes later he felt her mental status was back to baseline. She did have an episode of nausea/vomiting in the ambulance. In the ED, Head CT and cervical spine CT no acute findings Ddx includes seizure, arrhythmia, infection triggering arrhythmia 03/[address]: Cerebral atherosclerosis and chronic small vessel ischemic changes of the cerebral white matter No acute intracranial findings EKG NSR, normal QTc, 417 03/[address] Severe cervical spondylosis straightening of the cervical spine which may be due to muscle spasm. No fracture or dislocation or locked facet --Family member is Chasidy, who is an RN here and was present for the event may have additional information if needed. --Neurology consult --ECHO today showed: Summary 1. Left ventricular chamber dimension is normal. 2. Left ventricular systolic function is normal, estimated at 60-65%. 3. There is moderately increased left ventricular wall thickness. 4. The left ventricular diastolic function is grade I diastolic dysfunction. 5. Right ventricular systolic function is normal. 6. There is mild mitral valve regurgitation. 7. There is mild tricuspid valve regurgitation. --Monitor on tele --EEG to be done tomorrow. --Stop meclizine for now --Orthostatic VS: Supine 186/69 HR 84, sitting 173/71 HR 92, and standing 154/82 HR 86. NS@ 100 nl x 500 ml given. --Fall precautions, seizure precautions --Patient is a full code. Clarified with patient and son --PT/OT (2) GERD (gastroesophageal reflux disease): Code(s): K21.9 - Gastro-esophageal reflux disease without esophagitis Status: Acute Assessment and Plan: Takes omeprazole at home sometimes. Hasn't taken in a couple of days and has had reflux symptoms --Continue PPI --Stool for h pylori, though can be false negative on a PPI (3) Dysuria: Code(s): R30.0 - Dysuria Status: Acute Assessment and Plan: Recent low grade temps. No back pain Reports dysuria recently --s/p 1 dose of ceftriaxone in the ED --TTE --Blood cultures pending Subjective Date/time seen: 03/30/24 13:37 Interval history: Patient sitting up in bed. Patient denies chest pain, palpitations, headache, dizziness, nausea, or vomiting. Patient reports that she normally exercises 7-8 hours a day and has 49 steps at her home. She reports that her oldest son lives with her. Review of Systems Review of Systems: All systems reviewed & are unremarkable except as noted in HPI and below Exam Const: General: comfortable and no acute distress Resp: Effort & Inspection: normal respiratory effort Auscultation: clear to auscultation bilaterally Cardio: Rate: regular rate Rhythm: regular rhythm Other: Telemetry- SR 77 GI: GI Palp: Yes Soft to palpation Auscultation: normal bowel sounds : Other: Voiding without difficulty Skin: General skin exam: no rashes or lesions noted Extrem: General: normal to inspection and no pedal edema Psych: Mental Status: mental status grossly normal Affect: normal affect Objective Data Vital Signs Vital Signs: Vital Signs - 24 hr 03/29/24 15:12 03/29/24 16:00 03/29/24 18:37 Temperature 97.8 F Pulse Rate 80 81 88 Respiratory Rate 16 Blood Pressure 170/66 H Pulse Oximetry 96 Oxygen Delivery 03/29/24 21:22 03/29/24 21:46 03/30/24 00:05 Temperature 97 F L Pulse Rate 89 66 Respiratory Rate 16 Blood Pressure 151/68 H Pulse Oximetry 94 Oxygen Delivery Room Air 03/30/24 04:00 03/30/24 07:26 03/30/24 08:00 Temperature 98.5 F Pulse Rate 63 67 78 Respiratory Rate 16 Blood Pressure 154/52 H Pulse Oximetry 97 Oxygen Delivery 03/30/24 08:57 03/30/24 09:15 03/30/24 09:36 Temperature Pulse Rate 84 92 Respiratory Rate Blood Pressure 186/69 H 173/71 H Pulse Oximetry Oxygen Delivery Room Air 03/30/24 09:36 03/30/24 12:00 Temperature Pulse Rate 86 76 Respiratory Rate Blood Pressure 154/82 H Pulse Oximetry Oxygen Delivery Intake/Output Intake/Output: Intake & Output 03/27/24 03/28/24 03/29/24 03/30/24 23:59 23:59 23:59 23:59 Intake Total 1100 390 800 Balance 1100 390 800 Meds/Results Medications: Active Medications Generic Name Dose Route Start Last Admin Trade Name Freq PRN Reason Stop Dose Admin Enoxaparin Sodium 30 mg 03/30/24 09:00 03/30/24 09:16 Enoxaparin 30 Mg/0.3 Ml Syringe SUB-Q 30 mg DAILY DEVANTE Administration Multivitamins/Minerals 1 tablet 03/30/24 17:00 Opti-Gen Tab PO 04/29/24 16:59 BID DEVANTE Olopatadine HCl 1 drop 03/31/24 09:00 Olopatadine 0.1% Ophth Soln 5 Ml Btl EACH EYE 04/30/24 08:59 DAILY DEVANTE Pantoprazole Sodium 40 mg 03/29/24 18:25 03/30/24 09:16 Pantoprazole 40 Mg Tablet PO 40 mg QAM DEVANTE Administration Perflutren Lipid Microsphere 0 ml 03/29/24 18:10 Perflutren Lipid Microspheres 1.5 Ml Vial Diluted To 10 Ml Total Volume IV PUSH 04/01/24 18:10 ONCE PRN adequate visualization Protocol Radiology Results: ITS Impressions Chest X-Ray 03/28/24 18:28 IMPRESSION: No active cardiopulmonary disease Moderate elevation right diaphragm Aortic atherosclerosis No active pulmonary disease Head CT 03/28/24 20:27 IMPRESSION: Cerebral atherosclerosis and chronic small vessel ischemic changes of the cerebral white matter No acute intracranial finding Cervical Spine CT 03/28/24 20:30 IMPRESSION: Severe cervical spondylosis straightening of the cervical spine which may be due to muscle spasm. No fracture or dislocation or locked facet Labs Labs: Laboratory Results - last 24 hr 03/30/24 09:07 WBC 7.3 RBC 4.13 L Hgb 12.7 Hct 38.8 MCV 93.9 MCH 30.8 MCHC 32.7 RDW 12.3 Plt Count 252 MPV 9.8 Immature Gran % (Auto) 0.4 Neut % (Auto) 72.8 Lymph % (Auto) 17.8 L [place] % (Auto) 7.2 Eos % (Auto) 1.1 Baso % (Auto) 0.7 Lymph # (Auto) 1.31 [place] # (Auto) 0.5 Eos # (Auto) 0.1 Baso # (Auto) 0.1 Abs Immat Gran (auto) 0.03 Absolute Neuts (auto) 5.3 Absolute Nucleated RBC 0.000 Nucleated RBC % 0.0 Sodium 139 Potassium 4.0 Chloride 104 Carbon Dioxide 30 Anion Gap 5 BUN 20 H Creatinine 0.70 Estim Creat Clear Calc Not Reportable Estimated GFR > 60 Glucose 126 H Calcium 9.4 Total Bilirubin 0.6 AST 30 ALT 18 Alkaline Phosphatase 75 Total Protein 8.0 Albumin 4.2 Quality VTE Prophylaxis VTE prophylaxis: pharmacologic ordered
[2024-03-30] MEDS: OPTI-GEN TAB 1 TABLET PO (17:07)
[2024-03-30] MEDS: SODIUM CHLORIDE 0.9% IV 500 ML 100 ML IV CONT (17:09)
[2024-03-31] VITALS (15 sets, daily range): BP systolic 121–149; BP diastolic 46–70; PULSE 88–111; RESP 14–20; TEMP 36.5–37.2; O2SAT 93–96
[2024-03-31 05:56] LABS: Hematocrit 38.6 % (37.0-47.0); Hemoglobin 12.8 g/dL (12.0-15.0); Mean Corpuscular HGB Conc 33.2 g/dl (32-36); Mean Corpuscular Hemoglobin 31.1 pg (26-34); Mean Corpuscular Volume 93.9 fl (80-100); Mean Platelet Volume 9.9 fl (7.4-10.4); Platelet Count Result 248 k/mm3 (150-375); Red Blood Count 4.11 M/mm3 (4.2-5.4); Red Cell Distribution Width 12.3 % (11.5-14.5); White Blood Count 11.9 K/mm3 (4.5-10.0)
[2024-03-31 06:15] LABS: Alanine Aminotransferase 17 U/L (6-35); Albumin Level 4.3 g/dL (3.5-5.1); Alkaline Phosphatase 73 U/L (38-126); Anion Gap 8 mmol/L (4-12); Aspartate Amino Transferase 25 U/L (14-36); Bilirubin,Total 0.7 mg/dL (0.2-1.3); Blood Urea Nitrogen 24 mg/dL (7-17); Calcium 9.1 mg/dL (8.4-10.2); Carbon Dioxide 23 mmol/L (22-30); Chloride 107 mmol/L (98-107); Estimated Glomerular Filt Rate > 60; Glucose 148 mg/dL (65-110); Potassium 3.7 mmol/L (3.4-5.0); Sodium 138 mmol/L (137-145)
[2024-03-31 06:46] LABS: Band Neutrophils Percent 13 % (0-6); Basophils Percent Manual 0 % (0-1); Eosinophils Absolute Manual 0.11 K/mm3 (0.02-0.50); Eosinophils Percent Manual 1 % (0-4); Lymphocytes Absolute Manual 0.35 K/mm3 (1.1-4.5); Lymphocytes Percent Manual 3 % (18-44); Monocytes Absolute Manual 0.23 K/mm3 (0.1-0.90); Monocytes Percent Manual 2 % (3-9); Neutrophils Absolute Manual 11.18 K/mm3 (1.7-7.2); Neutrophils Percent Manual 81 % (46-73); Platelet Estimate Adequate (Adequate); Schistocytes None Seen; Total Cells Counted 100
[2024-03-31] MEDS: ENOXAPARIN 30 MG/0.3 ML SYRINGE SUB-Q (09:21)
[2024-03-31] MEDS: OPTI-GEN TAB 1 TABLET PO ×2 (09:22→17:22)
[2024-03-31] MEDS: OLOPATADINE 0.1% OPHTH SOLN 5 ML BTL 1 DROP EACH EYE (09:22)
[2024-03-31] MEDS: PANTOPRAZOLE 40 MG TABLET PO (09:22)
[2024-03-31] MEDS: ONDANSETRON INJ 4 MG/2 ML VIAL IV PUSH (12:36)
--- NOTE | 2024-03-31 14:20 | P.NEURO_ITS ---
Neurology EEG Report General Information Date of Study: 03/31/24 TEST EEG. DIAGNOSIS History of loss of consciousness. CONDITION OF RECORDING Awake drowsy and asleep. EEG NUMBER [id number] CLINICAL HISTORY patient reported he has been having dizzy spells for a while but other days she became unconscious and fell. EEG DESCRIPTION Medium voltage bihemispheric delta activity is noted admixed with theta activity. During sleep bilateral symmetrical sleep activity noted admixed with intermittent medium voltage slow activity that is 3 to 4 hertz per 2nd delta activity. Hyperventilation not done. Photic stimulation not done. Non paroxy smal. Nonfocal. Nonlateralizing. IMPRESSION Abnormal record due to the presence of excessive amount of slow activity suggestive of bihemispheric cerebral dysfunction on the basis of either postictal state, or metabolic dysfunction or as neuro degenerative process. Clinical correlation recommended.
--- NOTE | 2024-03-31 18:18 | PM.IMPN ---
Progress Note: A&P Assessment and Plan (1) Loss of consciousness: Code(s): R40.20 - Unspecified coma Status: Acute Assessment and Plan: Fell 2 months ago. Continues to report dizziness intermittently. 03/28 she was at her grandson's birthday libertarian and was standing and talking, suddenly lost consciousness mid sentence and had to be caught. She was caught so no injuries. No obvious seizure like activity per patient's son. Episode lasted about 5 minutes. Per son, she was completely unresponsive and when she woke up 5 minutes later, she made a comment related to the conversation she was having when she lost consciousness. Her son reports her speech was not quite normal initially but 15 minutes later he felt her mental status was back to baseline. She did have an episode of nausea/vomiting in the ambulance. In the ED, Head CT and cervical spine CT no acute findings Ddx includes seizure, arrhythmia, infection triggering arrhythmia 03/[address]: Cerebral atherosclerosis and chronic small vessel ischemic changes of the cerebral white matter No acute intracranial findings EKG NSR, normal QTc, 417 03/[address] Severe cervical spondylosis straightening of the cervical spine which may be due to muscle spasm. No fracture or dislocation or locked facet --Neurology following, awaiting EEG interpretation. --ECHO today showed: Summary 1. Left ventricular chamber dimension is normal. 2. Left ventricular systolic function is normal, estimated at 60-65%. 3. There is moderately increased left ventricular wall thickness. 4. The left ventricular diastolic function is grade I diastolic dysfunction. 5. Right ventricular systolic function is normal. 6. There is mild mitral valve regurgitation. 7. There is mild tricuspid valve regurgitation. --Continue to monitor on tele --Stop meclizine for now --Orthostatic VS: Supine 186/69 HR 84, sitting 173/71 HR 92, and standing 154/82 HR 86. --Continue fall precautions and seizure precautions. (2) GERD (gastroesophageal reflux disease): Code(s): K21.9 - Gastro-esophageal reflux disease without esophagitis Status: Acute Assessment and Plan: Takes omeprazole at home sometimes. --Continue PPI --Stool for h pylori, though can be false negative on a PPI (3) Dysuria: Code(s): R30.0 - Dysuria Status: Acute Assessment and Plan: Recent low grade temps. No back pain Reports dysuria recently --s/p 1 dose of ceftriaxone in the ED --Blood cultures NGTD. --Urine culture negative. Time Spent With Patient Time with patient: 15 - 25 minutes Subjective Date/time seen: 03/31/24 18:18 Patient states she feels alright and has no pain or other distressful symptoms. Interval history: Patient calm on bedrest and looks to be in no acute distress. Review of Systems Review of Systems: Nausea/vomiting, dizziness, recent fevers All systems reviewed & are unremarkable except as noted in HPI and below Exam Narrative: General - Awake and alert. No acute distress Eyes - PERRLA, EOM intact ENT - No thrush, No erythema Neck - No noticeable or palpable swelling Lymph Nodes - No lymphadenopathy Cardiovascular - RRR no m/r/g, no JVD Lungs: Clear to auscultation, Skin - Skin warm and dry, no wounds or rashes Abdomen - Normal bowel sounds, abdomen soft and nontender Extremities - No edema, cyanosis or clubbing Musculoskeletal - 5/5 strength, normal range of motion, no swollen or erythematous joints. Neurological ? Alert and oriented x 3, CN 2-12 grossly intact. Nonfocal exam. Psych: Normal mood and affect Objective Data Vital Signs Vital Signs: Vital Signs - 24 hr 03/30/24 20:00 03/30/24 20:00 03/30/24 20:40 Temperature 97.8 F 97.8 F Pulse Rate 81 67 67 Respiratory Rate 18 18 Blood Pressure 156/69 H 156/69 H Pulse Oximetry 99 99 Oxygen Delivery 03/30/24 20:44 03/30/24 20:45 03/31/24 00:00 Temperature 97.8 F 97.8 F Pulse Rate 91 101 H 89 Respiratory Rate 18 18 Blood Pressure 146/72 H 119/59 L Pulse Oximetry 97 96 Oxygen Delivery 03/31/24 04:00 03/31/24 04:29 03/31/24 08:00 Temperature 97.7 F Pulse Rate 99 103 H 99 Respiratory Rate 18 Blood Pressure 149/63 H Pulse Oximetry 94 Oxygen Delivery 03/31/24 08:50 03/31/24 08:55 03/31/24 09:00 Temperature Pulse Rate 95 111 H 104 H Respiratory Rate 18 20 20 Blood Pressure 142/70 H 125/60 121/57 L Pulse Oximetry 93 95 94 Oxygen Delivery 03/31/24 09:22 03/31/24 12:00 03/31/24 13:45 Temperature 98.4 F Pulse Rate 102 H 95 Respiratory Rate 14 Blood Pressure 138/58 L Pulse Oximetry 93 Oxygen Delivery Room Air 03/31/24 16:00 Temperature Pulse Rate 95 Respiratory Rate Blood Pressure Pulse Oximetry Oxygen Delivery Intake/Output Intake/Output: Intake & Output 03/28/24 03/29/24 03/30/24 03/31/24 23:59 23:59 23:59 23:59 Intake Total 8014 694 7111 790 Output Total 1 Balance 3803 896 6645 789 Meds/Results Medications: Active Medications Generic Name Dose Route Start Last Admin Trade Name Freq PRN Reason Stop Dose Admin Enoxaparin Sodium 30 mg 03/30/24 09:00 03/31/24 09:21 Enoxaparin 30 Mg/0.3 Ml Syringe SUB-Q 30 mg DAILY DEVANTE Administration Multivitamins/Minerals 1 tablet 03/30/24 17:00 03/31/24 17:22 Opti-Gen Tab PO 04/29/24 16:59 1 tablet BID DEVANTE Administration Olopatadine HCl 1 drop 03/31/24 09:00 03/31/24 09:22 Olopatadine 0.1% Ophth Soln 5 Ml Btl EACH EYE 04/30/24 08:59 1 drop DAILY DEVANTE Administration Ondansetron HCl 4 mg 03/31/24 12:15 03/31/24 12:36 Ondansetron Inj 4 Mg/2 Ml Vial IV PUSH 4 mg Q4H PRN Administration Nausea And Vomiting Pantoprazole Sodium 40 mg 03/29/24 18:25 03/31/24 09:22 Pantoprazole 40 Mg Tablet PO 40 mg QAM DEVANTE Administration Perflutren Lipid Microsphere 0 ml 03/29/24 18:10 Perflutren Lipid Microspheres 1.5 Ml Vial Diluted To 10 Ml Total Volume IV PUSH 04/01/24 18:10 ONCE PRN adequate visualization Protocol Radiology Results: ITS Impressions Chest X-Ray 03/28/24 18:28 IMPRESSION: No active cardiopulmonary disease Moderate elevation right diaphragm Aortic atherosclerosis No active pulmonary disease Head CT 03/28/24 20:27 IMPRESSION: Cerebral atherosclerosis and chronic small vessel ischemic changes of the cerebral white matter No acute intracranial finding Cervical Spine CT 03/28/24 20:30 IMPRESSION: Severe cervical spondylosis straightening of the cervical spine which may be due to muscle spasm. No fracture or dislocation or locked facet Labs Labs: Laboratory Results - last 24 hr 03/31/24 05:35 WBC 11.9 H RBC 4.11 L Hgb 12.8 Hct 38.6 MCV 93.9 MCH 31.1 MCHC 33.2 RDW 12.3 Plt Count 248 MPV 9.9 Immature Gran % (Auto) Steward/Stewardess Third Neut % (Auto) Steward/Stewardess Third Lymph % (Auto) Steward/Stewardess Third [place] % (Auto) Steward/Stewardess Third Eos % (Auto) Steward/Stewardess Third Baso % (Auto) Steward/Stewardess Third Lymph # (Auto) Steward/Stewardess Third [place] # (Auto) Steward/Stewardess Third Eos # (Auto) Steward/Stewardess Third Baso # (Auto) Steward/Stewardess Third Abs Immat Gran (auto) Steward/Stewardess Third Absolute Neuts (auto) Steward/Stewardess Third Absolute Nucleated RBC Steward/Stewardess Third Total Counted 100 Neutrophils % (Manual) 81 H Band Neutrophils % 13 H Lymphocytes % (Manual) 3 L Monocytes % (Manual) 2 L Eosinophils % (Manual) 1 Basophils % (Manual) 0 Nucleated RBC % Steward/Stewardess Third Abs Neuts (Manual) 11.18 H Abs Lymphs (Manual) 0.35 L Abs Monocytes (Manual) 0.23 Absolute Eos (Manual) 0.11 Abs Basophils (Manual) 0.00 Platelet Estimate Adequate Schistocytes None seen Sodium 138 Potassium 3.7 Chloride 107 Carbon Dioxide 23 Anion Gap 8 BUN 24 H Creatinine 0.70 Estim Creat Clear Calc Not Reportable Estimated GFR > 60 Glucose 148 H Calcium 9.1 Total Bilirubin 0.7 AST 25 ALT 17 Alkaline Phosphatase 73 Total Protein 8.0 Albumin 4.3 Quality VTE Prophylaxis VTE prophylaxis: pharmacologic ordered Hospitalist MIPS Advance Care Plan I have confirmed that the patient's Advanced Care Plan is present, code status is documented, or surrogate decision maker is listed in patient medical record.: Yes Medication Reconciliation I have utilized all available resources to obtain, update and review the patients current medications (includes all prescriptions, OTC, herbals, cannabis, and nutritional supplements).: Yes
[2024-04-01] VITALS (8 sets, daily range): BP systolic 110–156; BP diastolic 47–70; PULSE 72–103; RESP 16–18; TEMP 36.8; O2SAT 95–96
[2024-04-01 06:07] LABS: Basophils Percent Auto 0.4 % (0.2-1.2); Eosinophils Percent Auto 0.2 % (0-4.4); Hemoglobin 11.9 g/dL (12.0-15.0); Immature Granulocyte Absolute 0.04 K/mm3 (0.00-0.031); Immature Granulocyte Percent A 0.9 % (0-0.5); Lymphocytes Absolute Auto 1.09 K/mm3 (0.9-3.2); Lymphocytes Percent Auto 24.3 % (18.3-44.2); Mean Corpuscular HGB Conc 32.2 g/dl (32-36); Mean Corpuscular Hemoglobin 30.2 pg (26-34); Mean Corpuscular Volume 93.9 fl (80-100); Mean Platelet Volume 9.7 fl (7.4-10.4); Monocytes Absolute Auto 0.5 K/mm3 (0.1-0.6); Neutrophils Absolute Auto 2.8 K/mm3 (1.3-6.7); Neutrophils Percent Auto 62.2 % (45.5-73.1); Platelet Count Result 216 k/mm3 (150-375); Red Blood Count 3.94 M/mm3 (4.2-5.4); Red Cell Distribution Width 12.3 % (11.5-14.5); White Blood Count 4.5 K/mm3 (4.5-10.0)
[2024-04-01 06:23] LABS: Alanine Aminotransferase 17 U/L (6-35); Albumin Level 3.8 g/dL (3.5-5.1); Alkaline Phosphatase 57 U/L (38-126); Anion Gap 5 mmol/L (4-12); Aspartate Amino Transferase 32 U/L (14-36); Bilirubin,Total 0.5 mg/dL (0.2-1.3); Blood Urea Nitrogen 19 mg/dL (7-17); Calcium 8.7 mg/dL (8.4-10.2); Carbon Dioxide 28 mmol/L (22-30); Chloride 104 mmol/L (98-107); Estimated Glomerular Filt Rate > 60; Glucose 98 mg/dL (65-110); Potassium 3.7 mmol/L (3.4-5.0); Sodium 137 mmol/L (137-145)
[2024-04-01] MEDS: PANTOPRAZOLE 40 MG TABLET PO (09:12)
[2024-04-01] MEDS: ENOXAPARIN 30 MG/0.3 ML SYRINGE SUB-Q (09:12)
[2024-04-01] MEDS: OPTI-GEN TAB 1 TABLET PO (09:12)
[2024-04-01] MEDS: OLOPATADINE 0.1% OPHTH SOLN 5 ML BTL 1 DROP EACH EYE (09:13)
--- NOTE | 2024-04-01 12:51 | WPDNEUROPN ---
Progress Note: A&P Assessment and Plan (1) Loss of consciousness: Code(s): R40.20 - Unspecified coma Status: Acute Plan Based upon the current evaluation we do not have a definitive diagnosis. According to the son there was some nausea after the spell. I told him that the possibility of brainstem transient ischemic attack it could also be in the differential diagnosis. If she has any further spells I would like to evaluate her further. At this time I would suggest continue to observe. Her family members are very close to her. She has been living with her son but now she is going to live in assisted living. 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 Given the my phone number to contact if she has any further problems From neurologic point of view. Subjective Date/time seen: 04/01/24 12:51 Interval history: The patient is 88-year-old with history of 1 episode of unresponsiveness lasting for approximately 5 minutes after which she was slightly confused. There was no tongue biting or incontinence of urine. He did not have any major trauma. CT scan of brain was normal. EEG shows mild diffuse background slowing. Echocardiogram was normal. Cardiology has evaluated the patient and has suggested a cardiac event monitor for 30 days. She states that she has had a brief spell of unresponsiveness 5-6 years ago. Patient does not drive because of may macular degeneration. She also has hearing aid due to hearing loss. Besides that hearing and vision problem her mental status has been fairly decent according to her son and she does not have any memory problems. No history of cardiac problems or stroke or any other issues. In childhood she has had many a passing out spell but she was never diagnosed to have seizure disorder. Review of Systems Review of Systems: All systems reviewed & are unremarkable except as noted in HPI and below Exam Const: General: cooperative, well developed and alert Orientation/consciousness: patient oriented x3 HENMT: Head: atraumatic Eyes: Alignment and Position: position normal Pupils: Equal, round and reactive pupils present EOM: EOMs intact bilaterally Neck: Neck: supple Resp: Effort & Inspection: normal respiratory effort Neuro: General: patient oriented x3 Cranial nerves: Yes CN's II-XII intact bilaterally, Yes Equal, round and reactive pupils present, Yes facial symmetry and Yes Midline tongue present Cognition (Neuro): normal cognition Speech: normal speech Motor exam (neuro): 08/23 motor strength present throughout Coordination: [id number] test normal and Normal rapid alternating movements of the distal upper extremity present (Neuro) Objective Data Vital Signs Vital Signs: Vital Signs - 24 hr 03/31/24 13:45 03/31/24 16:00 03/31/24 19:41 Temperature 98.4 F 98.9 F Pulse Rate 95 95 88 Respiratory Rate 14 18 Blood Pressure 138/58 L 144/46 H Pulse Oximetry 93 95 Oxygen Delivery 03/31/24 19:44 03/31/24 19:48 03/31/24 20:00 Temperature 98.6 F 98.9 F Pulse Rate 97 106 H 89 Respiratory Rate 18 18 Blood Pressure 146/67 H 140/57 L Pulse Oximetry 95 94 Oxygen Delivery 03/31/24 20:00 03/31/24 22:00 04/01/24 00:00 Temperature 98.5 F Pulse Rate 106 H 76 Respiratory Rate 18 Blood Pressure 142/69 H Pulse Oximetry 96 Oxygen Delivery Room Air 04/01/24 04:00 04/01/24 05:56 04/01/24 07:00 Temperature 98.2 F 98.2 F Pulse Rate 75 74 72 Respiratory Rate 18 18 Blood Pressure 120/47 L 156/57 H Pulse Oximetry 95 96 Oxygen Delivery 04/01/24 08:00 04/01/24 08:03 04/01/24 08:03 Temperature 98.2 F Pulse Rate 77 73 Respiratory Rate 16 18 Blood Pressure 129/59 L Pulse Oximetry 96 Oxygen Delivery Room Air 04/01/24 08:37 Temperature 98.2 F Pulse Rate 103 H Respiratory Rate 18 Blood Pressure 110/70 Pulse Oximetry 96 Oxygen Delivery Intake/Output Intake/Output: Intake & Output 03/29/24 03/30/24 03/31/24 04/01/24 23:59 23:59 23:59 23:59 Intake Total 390 1540 930 120 Output Total 1 Balance 390 1540 929 120 Meds/Results Medications: Active Medications Generic Name Dose Route Start Last Admin Trade Name Freq PRN Reason Stop Dose Admin Enoxaparin Sodium 30 mg 03/30/24 09:00 04/01/24 09:12 Enoxaparin 30 Mg/0.3 Ml Syringe SUB-Q 30 mg DAILY DEVANTE Administration Multivitamins/Minerals 1 tablet 03/30/24 17:00 04/01/24 09:12 Opti-Gen Tab PO 04/29/24 16:59 1 tablet BID DEVANTE Administration Olopatadine HCl 1 drop 03/31/24 09:00 04/01/24 09:13 Olopatadine 0.1% Ophth Soln 5 Ml Btl EACH EYE 04/30/24 08:59 1 drop DAILY DEVANTE Administration Ondansetron HCl 4 mg 03/31/24 12:15 03/31/24 12:36 Ondansetron Inj 4 Mg/2 Ml Vial IV PUSH 4 mg Q4H PRN Administration Nausea And Vomiting Pantoprazole Sodium 40 mg 03/29/24 18:25 04/01/24 09:12 Pantoprazole 40 Mg Tablet PO 40 mg QAM DEVANTE Administration Perflutren Lipid Microsphere 0 ml 03/29/24 18:10 Perflutren Lipid Microspheres 1.5 Ml Vial Diluted To 10 Ml Total Volume IV PUSH 04/01/24 18:10 ONCE PRN adequate visualization Protocol Radiology Results: ITS Impressions Chest X-Ray 03/28/24 18:28 IMPRESSION: No active cardiopulmonary disease Moderate elevation right diaphragm Aortic atherosclerosis No active pulmonary disease Head CT 03/28/24 20:27 IMPRESSION: Cerebral atherosclerosis and chronic small vessel ischemic changes of the cerebral white matter No acute intracranial finding Cervical Spine CT 03/28/24 20:30 IMPRESSION: Severe cervical spondylosis straightening of the cervical spine which may be due to muscle spasm. No fracture or dislocation or locked facet Labs Labs: Laboratory Results - last 24 hr 04/01/24 05:54 WBC 4.5 RBC 3.94 L Hgb 11.9 L Hct 37.0 MCV 93.9 MCH 30.2 MCHC 32.2 RDW 12.3 Plt Count 216 MPV 9.7 Immature Gran % (Auto) 0.9 H Neut % (Auto) 62.2 Lymph % (Auto) 24.3 [place] % (Auto) 12.0 H Eos % (Auto) 0.2 Baso % (Auto) 0.4 Lymph # (Auto) 1.09 [place] # (Auto) 0.5 Eos # (Auto) 0.0 Baso # (Auto) 0.0 Abs Immat Gran (auto) 0.04 H Absolute Neuts (auto) 2.8 Absolute Nucleated RBC 0.000 Nucleated RBC % 0.0 Sodium 137 Potassium 3.7 Chloride 104 Carbon Dioxide 28 Anion Gap 5 BUN 19 H Creatinine 0.70 Estim Creat Clear Calc Not Reportable Estimated GFR > 60 Glucose 98 Calcium 8.7 Total Bilirubin 0.5 AST 32 ALT 17 Alkaline Phosphatase 57 Total Protein 7.0 Albumin 3.8
--- NOTE | 2024-04-01 13:07 | PM.DS ---
DS: Admitting Diagnosis Discharge Date 04/01/24 Admitting Diagnosis Loss of Consciousness DS: Discharge Diagnosis Discharge Diagnosis (1) Loss of consciousness: Code(s): R40.20 - Unspecified coma Status: Acute Assessment and Plan: Fell 2 months ago. Continues to report dizziness intermittently. Patient was at her grandson's birthday libertarian and was standing and talking, suddenly lost consciousness mid sentence and had to be caught. She was caught so no injuries. No obvious seizure like activity per patient's son. Episode lasted about 5 minutes. Per son, she was completely unresponsive and when she woke up 5 minutes later, she made a comment related to the conversation she was having when she lost consciousness. Her son reports her speech was not quite normal initially but 15 minutes later he felt her mental status was back to baseline. She did have an episode of nausea/vomiting in the ambulance. In the ED, Head CT and cervical spine CT no acute findings Ddx includes seizure, arrhythmia, infection triggering arrhythmia 03/[address]: Cerebral atherosclerosis and chronic small vessel ischemic changes of the cerebral white matter No acute intracranial findings EKG NSR, normal QTc, 417 03/[address] Severe cervical spondylosis straightening of the cervical spine which may be due to muscle spasm. No fracture or dislocation or locked facet --Seen by Neurology, and EEG normal. --ECHO today showed: Summary 1. Left ventricular chamber dimension is normal. 2. Left ventricular systolic function is normal, estimated at 60-65%. 3. There is moderately increased left ventricular wall thickness. 4. The left ventricular diastolic function is grade I diastolic dysfunction. 5. Right ventricular systolic function is normal. 6. There is mild mitral valve regurgitation. 7. There is mild tricuspid valve regurgitation. --Continue to monitor on tele --Stop meclizine for now --Orthostatic VS: Supine 186/69 HR 84, sitting 173/71 HR 92, and standing 154/82 HR 86. --Continue fall precautions and seizure precautions. (2) GERD (gastroesophageal reflux disease): Code(s): K21.9 - Gastro-esophageal reflux disease without esophagitis Status: Acute Assessment and Plan: Takes omeprazole at home sometimes. --Continue PPI (3) Dysuria: Code(s): R30.0 - Dysuria Status: Acute Assessment and Plan: Recently low grade temps. No back pain --s/p 1 dose of ceftriaxone in the ED --Blood cultures NGTD. --Urine culture negative. Plan Discharge Home. DS: Summary Hospital Course Reason for hospitalization: Loss of Consciousness. Hospital Course: Patient was brought in to the ER with reports of loss of consciousness. Patient was at her grandson's birthday libertarian and was standing and talking, suddenly lost consciousness mid sentence and had to be caught. She was caught so no injuries. No obvious seizure like activity per patient's son. Episode lasted about 5 minutes. Per son, she was completely unresponsive and when she woke up 5 minutes later, she made a comment related to the conversation she was having when she lost consciousness. Her son reports her speech was not quite normal initially but 15 minutes later he felt her mental status was back to baseline. She did have an episode of nausea/vomiting in the ambulance. In the ED, Head CT and cervical spine CT showed no acute findings. Ddx includes seizure, arrhythmia, infection triggering arrhythmia. Patient had a normal EEG and has been cleared for discharge by neurology and referred to cardiology for 30 a day heart monitoring. Patient was also seen by cardiology during her hospitalization. She currently denies any symptoms and states she's very active at home therefore wants to be discharged today. Son is bedside and they have been advised to return to hospital if event occurs again and follow-up with neurologist outpatient if needed. Patient is medically stable for discharge with no acute distress noted or reported prior to discharge. Patient maintained SR on telemetry and ambulated with PT prior to her discharge and did well. Status at Discharge Functional status at discharge: independent ambulation Overall status at discharge: patient is back to baseline Time Spent with Patient Time attestation: Total time spent providing and/or coordinating discharge services: Time spent: Greater than 30 minutes Exam Narrative: General - Awake and alert. No acute distress Eyes - PERRLA, EOM intact ENT - No thrush, No erythema Neck - No noticeable or palpable swelling Lymph Nodes - No lymphadenopathy Cardiovascular - RRR no m/r/g, no JVD Lungs: Clear to auscultation, Skin - Skin warm and dry, no wounds or rashes Abdomen - Normal bowel sounds, abdomen soft and nontender Extremities - No edema, cyanosis or clubbing Musculoskeletal - 5/5 strength, normal range of motion, no swollen or erythematous joints. Neurological ? Alert and oriented x 3, CN 2-12 grossly intact. Nonfocal exam. Psych: Normal mood and affect DS: Data Data Completed and Pending Labs on day of discharge: Labs from last 24 hours 04/01/24 05:54 WBC 4.5 RBC 3.94 L Hgb 11.9 L Hct 37.0 MCV 93.9 MCH 30.2 MCHC 32.2 RDW 12.3 Plt Count 216 MPV 9.7 Immature Gran % (Auto) 0.9 H Neut % (Auto) 62.2 Lymph % (Auto) 24.3 [place] % (Auto) 12.0 H Eos % (Auto) 0.2 Baso % (Auto) 0.4 Lymph # (Auto) 1.09 [place] # (Auto) 0.5 Eos # (Auto) 0.0 Baso # (Auto) 0.0 Abs Immat Gran (auto) 0.04 H Absolute Neuts (auto) 2.8 Absolute Nucleated RBC 0.000 Nucleated RBC % 0.0 Sodium 137 Potassium 3.7 Chloride 104 Carbon Dioxide 28 Anion Gap 5 BUN 19 H Creatinine 0.70 Estim Creat Clear Calc Not Reportable Estimated GFR > 60 Glucose 98 Calcium 8.7 Total Bilirubin 0.5 AST 32 ALT 17 Alkaline Phosphatase 57 Total Protein 7.0 Albumin 3.8 Preliminary micro results at discharge 03/28/24 23:46 Blood Culture - Preliminary Blood 03/28/24 23:42 Blood Culture - Preliminary Blood Discharge Plan Discharge Attending physician on discharge: Federico Rick Consulting providers: Uriah Ford; Chuck Velásquez Discharging Clinician: Padmini Murrieta Anticipated Discharge Date/Time: 04/01/24 13:20 Patient Disposition: Home, Self-Care Activity: as tolerated Diet: as tolerated Patient Instructions: Antibiotic Form, Pain Management (DC) Patient Language: Mauritian Stand Alone Forms: General Discharge Information Follow-up/Referrals: Chuck Velásquez MD [Physician] - 1 Week (Outpatient cardiac monitoring) Discharge Medications: Continued omeprazole magnesium [Prilosec OTC] 20 mg Tablet,Delayed Release (Dr/Ec) 20 mg PO HS aspirin 81 mg Tablet 81 mg PO DAILY olopatadine [Eye Allergy Itch Relief] 0.2 % drops 1 drp EACH EYE DAILY No Action PreserVision AREDS-2 250-90-40-1 mg capsule 1 tablet PO BID Other Ambulatory Orders: [place] cardiac event monitor (Routine) Timeframe: 1 Month Location: Determined by Patient Ordered By: Chuck Velásquez Date of admission: 03/29/24 10:30 Primary Care Provider: MicahLes Admitting Provider: Bossman Pena Attending physician on admission: Bossman Pena Condition: Guarded Prognosis Quality VTE Prophylaxis VTE prophylaxis: pharmacologic ordered If No VTE Prophylaxis Answer both mechanical and pharmacologic: Reason no mechanical VTE proph: low risk/not indicated Reason no pharmacologic proph: low risk/not indicated Hospitalist MIPS Heart Failure (Exclusion) Patient has history of Heart Transplant or Left Ventricular Assistive Device?: No IF YES, STOP HERE Heart Failure (Qualifier) Patient has current or prior documentation of LVEF less than or equal to 40%, or mod/servere depressed LVSF?: No IF NO, STOP HERE
== END 2024-04-01 14:55 | disposition home or self-care (01) ==
LOC: ANHED 23:28 → ANH3MEDSUR 03-29 02:10 → ANH2MED 03-30 10:25 → ANH3MEDSUR 04-02 07:33
PROVIDERS: Nurse Practitioner Family; Student in an Organized Health Care Education/Training Program; Admitting Provider Internal Medicine; Emergency Provider Emergency Medicine; PCP Family Medicine; Visit Provider Internal Medicine
DX: R40.20 Unspecified coma (principal); R30.0 Dysuria; E86.0 Dehydration; K21.9 Gastro-esophageal reflux disease without esophagitis; H35.30 Unspecified macular degeneration; H91.90 Unspecified hearing loss, unspecified ear; Z91.81 History of falling; Z20.822 Contact with and (suspected) exposure to COVID-19; Z79.82 Long term (current) use of aspirin; Z88.0 Allergy status to penicillin; Z87.891 Personal history of nicotine dependence
CPT/HCPCS: 36415; 70450; 71045; 72125; 80053; 80307; 81001; 82077; 82803; 83605; 83690; 83735; 83880; 84100; 84443; 84484; 85025; 85610; 85730; 87040; 87086; 87637; 93005; 93306; 95816; 96372; 99285; A9270; G0378; J0696; J1650; J1953; J2405; J7030; J7040